=== PATIENT | female | born 1965 | race Caucasian/White ===

== ENCOUNTER 2016-08-31 21:32 | Emergency (ER) | payer MEDICARE ==
[2016-09-01 00:09] LABS: APPEARANCE,URINE TURBID; BILIRUBIN,URINE NEGATIVE (NEGATIVE); GLUCOSE, URINE NEGATIVE (NEGATIVE); KETONES,URINE 80 mg/dL (NEGATIVE); LEUKOCYTE ESTERASE,URINE LARGE (NEGATIVE); NITRITE,URINE NEGATIVE (NEGATIVE); PROTEIN,URINE 100 mg/dL (NEGATIVE); URINE SPECIFIC GRAVITY 1.014; UROBILINOGEN,URINE NEGATIVE mg/dL (<2.0)
[2016-09-01 00:59] LABS: ABSOLUTE BASOPHILS # (AUTO) 0.2 10^3/uL (0.0-0.2); ABSOLUTE LYMPHOCYTES (AUTO) 1.1 10^3/uL (0.5-4.7); EOSINOPHILS % (AUTO) 0.1 % (0-6); HEMATOCRIT 41.7 % (36.0-47.0); HEMOGLOBIN 13.6 g/dL (12.0-15.5); HGB HCT DIFFERENCE -0.9; LYMPHOCYTES % (AUTO) 6.2 % (13-45); MEAN CORPUSCULAR HEMOGLOBIN 28.8 pg (27.0-33.4); MEAN CORPUSCULAR HGB CONC 32.6 g/dL (32.0-36.0); MEAN CORPUSCULAR VOLUME 88 fl (80-97); MONOCYTES % (AUTO) 5.9 % (3-13); RED BLOOD COUNT 4.73 10^6/uL (3.72-5.28); SEGMENTED NEUTROPHILS % (AUTO) 86.8 % (42-78); WHITE BLOOD COUNT 17.3 10^3/uL (4.0-10.5)
[2016-09-01 01:20] LABS: ALANINE AMINOTRANSFERASE 20 U/L (9-52); ALKALINE PHOSPHATASE 92 U/L (38-126); ANION GAP 18 (5-19); ASPARTATE AMINO TRANSFERASE 14 U/L (14-36); BILIRUBIN,DIRECT 0.3 mg/dL (0.0-0.4); BILIRUBIN,TOTAL 1.4 mg/dL (0.2-1.3); BLOOD UREA NITROGEN 13 mg/dL (7-20); CALCIUM 9.8 mg/dL (8.4-10.2); CARBON DIOXIDE 14 mmol/L (22-30); CHLORIDE 106 mmol/L (98-107); GLUCOSE 115 mg/dL (75-110); LIPASE 36.6 U/L (23-300); POTASSIUM 3.6 mmol/L (3.6-5.0); SODIUM 137.5 mmol/L (137-145); TOTAL PROTEIN 7.4 g/dL (6.3-8.2)
[2016-09-01] MEDS ORDERED: CEFTRIAXONE 1 GM/D5W RTU 50 ML IV ONE (01:22)
[2016-09-01] MEDS ORDERED: FENTANYL CITRATE INJ/PF 100 MCG/2 ML AMPUL IV ONE (01:23)
[2016-09-01] MEDS ORDERED: HYDROMORPHONE HCL INJ/PF 2 MG/ML AMPULE IV ONE (02:01)
[2016-09-01] MEDS ORDERED: NORMAL SALINE 1000 ML 1,000 ML IV ONE (02:05)
--- NOTE | 2016-09-01 02:15 | ER Document Report ---
ED GI/ - General Information source: Patient Cannot obtain history due to: Uncooperative TRAVEL OUTSIDE OF THE [place] IN LAST 30 DAYS: No <BAMBI JOHNSON - Last Filed: 09/01/16 02:24> <PREMA HAAS - Last Filed: 09/01/16 04:38> - General Chief Complaint: Flank Pain Stated Complaint: RIGHT FLANK PAIN Time Seen by Provider: 09/01/16 01:19 Notes: Patient is a 50 year old female who presents to the ED with complaints of right flank pain since yesterday. Patient has a history of kidney stones. HPI limited due to patient being agitated and uncooperative. (BAMBI JOHNSON) - Related Data Allergies/Adverse Reactions: No Known Allergies Allergy (Verified 09/01/16 03:04) Past Medical History - Social History Smoking Status: Never Smoker Chew tobacco use (# tins/day): No Frequency of alcohol use: None Drug Abuse: None Patient has suicidal ideation: No Patient has homicidal ideation: No Renal/ Medical History: Reports: Hx Kidney Stones. Denies: Hx Peritoneal Dialysis <BAMBI JOHNSON - Last Filed: 09/01/16 02:24> - Social History Family History: Reviewed & Not Pertinent <PREMA HAAS - Last Filed: 09/01/16 04:38> Review of Systems - Review of Systems Constitutional: No symptoms reported EENT: No symptoms reported Cardiovascular: No symptoms reported Respiratory: No symptoms reported Gastrointestinal: No symptoms reported Genitourinary: See HPI, Flank pain - right Female Genitourinary: No symptoms reported Musculoskeletal: No symptoms reported Skin: No symptoms reported Hematologic/Lymphatic: No symptoms reported Neurological/Psychological: No symptoms reported <BAMBI JOHNSON - Last Filed: 09/01/16 02:24> Physical Exam - Psychological Associated symptoms: Agitated, Uncooperative <BAMBI JOHNSON - Last Filed: 09/01/16 02:24> - Respiratory Respiratory status: No respiratory distress Chest status: Nontender Breath sounds: Normal Chest palpation: Normal - Cardiovascular Rhythm: Regular, Tachycardia Heart sounds: Normal auscultation Murmur: No - Back Back: CVA tenderness - R - Skin Skin Temperature: Warm Skin Moisture: Dry Skin Color: Normal <PREMA HAAS - Last Filed: 09/01/16 04:38> - Vital signs Vitals: Temp Pulse Resp BP Pulse Ox 97.9 F 95 25 H 104/62 99 08/31/16 21:44 08/31/16 21:44 08/31/16 21:44 08/31/16 21:44 08/31/16 21:44 - Notes Notes: Unable to perform exam due to patient being agitated and uncooperative (BAMBI JOHNSON) Course - Laboratory Result Diagrams: 09/01/16 00:22 09/01/16 00:22 <BAMBI JOHNSON - Last Filed: 09/01/16 02:24> - Laboratory Result Diagrams: 09/01/16 00:22 09/01/16 00:22 <PREMA HAAS - Last Filed: 09/01/16 04:38> - Re-evaluation Re-evalutation: 09/01/16 04:35 Patient is a 50-year-old female with a history of kidney stones who comes in complaining of flank pain. Patient initially did not want to answer questions and just wanted something for pain. Patient was initially very nasty and yelling in the room. Patient now feels better after pain medication. Hearing consistent with infection. Patient given ceftriaxone in the emergency department. Urine culture will be sent. She will be discharged home with pain medication, Keflex, and a referral to urology. Pain is controlled. Taking p.o. Stable for discharge. (PREMA HAAS) - Vital Signs Vital signs: Temp Pulse Resp BP Pulse Ox 97.9 F 95 25 H 104/62 99 08/31/16 21:44 08/31/16 21:44 08/31/16 21:44 08/31/16 21:44 08/31/16 21:44 - Laboratory Laboratory results interpreted by me: 08/31/16 09/01/16 09/01/16 23:50 00:22 00:22 WBC 17.3 H Seg Neutrophils % 86.8 H Lymphocytes % 6.2 L Absolute Neutrophils 15.0 H Carbon Dioxide 14 L Est GFR (Non-Af Amer) 58 L Glucose 115 H Total Bilirubin 1.4 H Urine Protein 100 H Urine Ketones 80 H Urine Blood SMALL H Ur Leukocyte Esterase LARGE H Discharge <BAMBI JOHNSON - Last Filed: 09/01/16 02:24> <PREMA HAAS - Last Filed: 09/01/16 04:38> - Discharge Clinical Impression: Kidney stones, Pyelonephritis Condition: Stable Disposition: HOME, SELF-CARE Instructions: Pyelonephritis ([facility]) Prescriptions: Ondansetron [Zofran Odt 4 mg Tablet] 1 tab PO Q6HP PRN #15 tab.rapdis PRN Reason: For Nausea/Vomiting Cephalexin Monohydrate [Keflex 500 mg Capsule] 500 mg PO QID #40 capsule Oxycodone HCl/Acetaminophen [Percocet 5-325 mg Tablet] 1 - 2 tab PO Q4H PRN #15 tablet PRN Reason: Referrals: TIFFANY ZAPIEN PA [Primary Care Provider] - Follow up as needed ANDREY ADORNO MD [ACTIVE STAFF] - Follow up as needed Scribe Attestation: 09/01/16 04:37 I personally performed the services described in the documentation, reviewed and edited the documentation which was dictated to the scribe in my presence, and it accurately records my words and actions. (PREMA HAAS) Scribe Documentation - Scribe Written by Theo:: theo Smith, 09/01/2016, 0211 acting as scribe for :: Ganesh <BAMBI JOHNSON - Last Filed: 09/01/16 02:24>
[2016-09-01] MEDS ORDERED: RINGERS SOLUTION,LACTATED 1,000 ML IV ONE (02:57)
[2016-09-01] MEDS ORDERED: HYDROCODONE/ACETAMINOPHEN 5-325 MG 6 TAB/DSPK PO PRN (04:36)
[2016-09-01] MEDS ORDERED: ONDANSETRON ODT 4 MG TAB (6 TAB/DSPK) PO PRN (04:37)
[2016-09-01 07:09] VITALS: BP 120/77
== END 2016-09-01 06:00 | disposition home or self-care (01) ==
LOC: ER 21:32
DX: N20.0 Calculus of kidney (principal); N12 Tubulo-interstitial nephritis, not specified as acute or chronic; R10.9 Unspecified abdominal pain; Z87.442 Personal history of urinary calculi
CPT/HCPCS: 99284; 96361; 96375; 96365; 96367; 36415; 87040; 87086; 83690; 85025; 87077; 87088; 80053; 81001; 87186; J3010; J1170; J7030; J7120; J0696; A9270 ×2

== ENCOUNTER → 2017-12-21 | Outpatient (CLI) | payer MEDICARE ==
--- NOTE | 2017-12-21 10:12 | WOMENS IMAGING REPORT ---
EXAM DESCRIPTION: BONE DENSITY HIP/SPINE COMPLETED DATE/TIME: 12/21/2017 9:51 am REASON FOR STUDY: BONE DENSITY TEST/N95.9 M54.2 CERVICALGIA N95.9 UNSPECIFIED MENOPAUSAL AND PERIM ENOPAUSAL DISORDER N95.2 POSTMENOPAUSAL ATROPHIC VAGINITIS COMPARISON: None. TECHNIQUE: Dual-Energy X-ray Absorptiometry (DEXA) of the AP Spine and Hip. LIMITATIONS: None. FINDINGS: LUMBAR SPINE: The bone mineral density (BMD) measured from L1-L4 in the AP projection correlates with a T-score of -2.5, which is osteoporotic as defined by the World Health Organization. HIP: The bone mineral density (BMD) measured in the left femoral neck at the hip correlates with a T-score of -2.0, which is osteopenic as defined by the World Health Organization. IMPRESSION: 1. LUMBAR SPINE: Osteoporotic 2. HIP: Osteopenic COMMENT: The World Health Organization defines low BMD as follows: T-score: Normal: Greater than -1.0 Osteopenia: Between -1.0 and -2.5 Osteoporosis: Less than -2.5 without fractures Established osteoporosis: Less than -2.5 with fractures In general, you may wish to consider: Diagnosis Treatment Follow-up DEXA Normal BMD Prevention 2-3 years Osteopenia Prevention/Therapy 1-2 years Osteoporosis Therapy Yearly TECHNICAL DOCUMENTATION: JOB ID: [id number] [employer]- All Rights Reserved Reading location - IP/workstation name: [email or web address]
--- NOTE | 2017-12-21 11:53 | WOMENS IMAGING REPORT ---
EXAM DESCRIPTION: U/S THYROID/ST TIS HEAD NECK COMPLETED DATE/TIME: 12/21/2017 10:33 am REASON FOR STUDY: TYRHOID U/S /M54.2 M54.2 CERVICALGIA N95.9 UNSPECIFIED MENOPAUSAL AND PERIMENOPA USAL DISORDER N95.2 POSTMENOPAUSAL ATROPHIC VAGINITIS COMPARISON: None. TECHNIQUE: Dynamic and static marin-scale images acquired of the thyroid gland. Selected additional c olor/power Doppler images recorded. All images stored to PACS. LIMITATIONS: None. FINDINGS: RIGHT LOBE: Normal size, 3.9 x 1.6 x 1.5 cm. Homogeneous echotexture. No cystic or solid masses. LEFT LOBE: Normal size, 3.4 x 1.3 x 1.2 cm. Homogeneous echotexture. No cystic or solid masses. ISTHMUS: Normal size, less than 2 mm in thickness. Homogeneous echotexture. No cystic or solid mass es. OTHER: No other significant finding. IMPRESSION: NORMAL THYROID ULTRASOUND. TECHNICAL DOCUMENTATION: JOB ID: [id number] [employer]- All Rights Reserved Reading location - IP/workstation name: [facility]
== END ==
LOC: WI 09:03
PROVIDERS: ATTEND Family Medicine
DX: M54.2 Cervicalgia (principal); N95.9 Unspecified menopausal and perimenopausal disorder
CPT/HCPCS: 76536; 77080

== ENCOUNTER → 2019-01-04 | Outpatient (CLI) | payer MEDICARE ==
--- NOTE | 2019-01-04 15:42 | RADIOLOGY REPORT (SQ) ---
EXAM DESCRIPTION: U/S RETROPERITON (RENAL/AORTA) COMPLETED DATE/TIME: 01/04/2019 3:30 pm REASON FOR STUDY: R31.9 HEMATURIA R31.9 HEMATURIA, UNSPECIFIED COMPARISON: None. TECHNIQUE: Dynamic and static grayscale images acquired of the kidneys and bladder and recorded on P ACS. Additional selected color Doppler and spectral images recorded. LIMITATIONS: None. FINDINGS: RIGHT KIDNEY: The right kidney measures 8.6 cm in length. Normal echogenicity. No balaji id or suspicious masses. No hydronephrosis. There are echogenic foci the largest measures 1 cm. Both demonstrate shadowing consistent with stones. LEFT KIDNEY: The left kidney measures 12.2 cm in length. Normal echogenicity. No solid or suspic ious masses. No hydronephrosis. No calcifications. BLADDER: No masses. OTHER FINDINGS: No other significant finding. IMPRESSION: Small right kidney. No cortical thinning. Echogenicity is normal bilaterally. There a re nonobstructing right renal calculi. No hydronephrosis. TECHNICAL DOCUMENTATION: JOB ID: [id number] [email or web address]- All Rights Reserved Reading location - IP/workstation name: [email or web address]
== END ==
LOC: RAD 14:17
PROVIDERS: ATTEND Nurse Practitioner Family
DX: R31.9 Hematuria, unspecified (principal)
CPT/HCPCS: 76770

== ENCOUNTER → 2019-02-06 | Outpatient (CLI) | payer MEDICARE ==
--- NOTE | 2019-02-06 11:46 | WOMENS IMAGING REPORT ---
EXAM DESCRIPTION: 3D SCREENING MAMMO BILAT COMPLETED DATE/TIME: 02/06/2019 10:45 am REASON FOR STUDY: Z12.31 ENCOUNTER FOR SCREENING MAMMOGRAM FOR MALIGNANT NEOPLASM OF BREAST Z12.31 ENCNTR SCREEN MAMMOGRAM FOR MALIGNANT NEOPLASM OF SAROJ COMPARISON: 2017 EXAM PARAMETERS: Views: Standard craniocaudal and mediolateral oblique views of each breast recorded using digital acquisition and breast tomosynthesis. Read with the assistance of CAD. .[facility] - [employer] Version 9.2 LIMITATIONS: None. FINDINGS: No suspicious masses, suspicious calcifications or architectural distortion. No areas of c oncern. IMPRESSION: NEGATIVE MAMMOGRAM. BIRADS 1. BREAST DENSITY: b. There are scattered areas of fibroglandular density. BIRAD: ASSESSMENT: 1 NEGATIVE RECOMMENDATION: ROUTINE SCREENING COMMENT: The patient has been notified of the results by letter per MQSA requirements. Additional no tification policies are in place for contacting patient with suspicious or incomplete findings. Quality ID #[id number]: The [employer] recommends an annual screening mammogram for women aged 40 years or over. This facility utilizes a reminder system to ensure that all patients receive reminder letters, and/or direct phone calls for appointments. This includes reminders for routine scr eening mammograms, diagnostic mammograms, or other Breast Imaging Interventions when appropriate. Th is patient will be placed in the appropriate reminder system. TECHNICAL DOCUMENTATION: FINDING NUMBER: (1) ASSESSMENT: (1) JOB ID: [id number] [employer] All Rights Reserved Reading location - IP/workstation name: [email or web address]
== END ==
LOC: WI 10:12
PROVIDERS: ATTEND Nurse Practitioner Family
DX: Z12.31 Encounter for screening mammogram for malignant neoplasm of breast (principal)
CPT/HCPCS: 77063; 77067